=== PATIENT | female | born 1965 | race Caucasian/White ===

== ENCOUNTER 2017-10-29 06:07 | Day surgery (SDC) | payer OTHER ==
[~2017-10-29] VITALS: Ht 157.5 cm; Wt 96.6 kg
[~2017-10-29 06:07] MED LIST: CLONAZEPAM1 MG PO; EQ ALLERGY & S1 EACH PO; GABAPENTIN300 MG PO; GLUCOPHAGE1000 MG PO; LANTUS100 UNITS/ SUB-Q; LIPITOR80 MG PO; NOVOLOG100 UNIT/2 SUB-Q; PAROXETINE HCL20 MG PO; PROAIR HFA8.5 GM INH; SYNTHROID50 MCG PO; VITAMIN D35000 UNI1 PO
[2017-10-29] MEDS ORDERED: CALCIUM500 MG PO (06:27)
[2017-10-29] MEDS ORDERED: GLUCOPHAGE1000 MG PO (06:28)
[2017-10-29] MEDS ORDERED: LISINOPRIL-HCT1 EAC1 PO (06:29)
--- NOTE | 2017-10-29 08:39 | NUR ---
10/29/17 0839 Taina Shukla 0822 PT ARRIVED ON 4L VIA NC. PT REACTIVE. O2 DECREASED, PT OPENED EYES TO TICTILE STIMULI AND ENCOURAGED TO DEEP BREATH. O2 INCREASED. 0828 PT MORE AWAKE AND TALKING. PT REMOVED NC FROM FACE. O2 SAT 95%. 0830 PT BP DECREASED, HOB DOWN AND FLUIDS INCREASED. PT TALKING AND DENIES PAIN, DIZZINESS, AND NAUSEA.
--- NOTE | 2017-10-29 09:58 | OR ---
[facility] [address] [place], [place] [address] Signed DATE OF OPERATION: 10/29/2017 SURGEON: Buddy Durant MD PREOPERATIVE DIAGNOSES: 1. Mother with a history of colonic polyps. 2. Chronic diarrhea. 3. Fecal urgency and soilage. POSTOPERATIVE DIAGNOSIS: Moderate internal hemorrhoids. PROCEDURE: Colonoscopy without biopsy. ESTIMATED BLOOD LOSS: None. INDICATIONS: Bhavana is a 52-year-old patient asked to see me for followup colonoscopy. She has had longstanding diabetes and anxiety. She does take daily clonazepam. Her colonoscopy five years ago in [place] was unremarkable. They told her GI symptoms were probably from the diabetes. She does have trouble with fecal urgency and soilage particular at night. She also mentioned that her mother had colonic polyps removed. I gave Bhavana a booklet in the office on colonoscopy. We looked at that together along with the risks including, but not limited to gas bloating, crampy abdominal pain, bleeding, perforation, requiring surgery, and missed diagnosis. We also discussed the need for IV conscious sedation. She had expressed understanding and wished to proceed. PROCEDURE NOTE: Bhavana was taken into the endoscopy suite and placed in the left lateral decubitus position. She was given 10 mg of Versed and 200 mcg of fentanyl. She was still awake and talking to us. Consequently, we asked the anesthesia provider to come and help us with infusion of propofol. In addition, she needed some airway management as well. After this, a digital rectal exam was performed and this was unremarkable. She has good sphincter control. The adult colonoscope was introduced and advanced all around into the cecum under direct visualization of camera without difficulty. Her prep was good. The scope was then slowly withdrawn. We found no pathology throughout the entire colon or rectum. We did take pictures throughout for photodocumentation. Upon retroflexion of the scope, there was no additional pathology noted above the anal canal except for Electronically Signed By: BUDDY DURANT MD 10/29/17 0958 PATIENT NAME: BHAVANA WOOD OPERATIVE REPORT DATE OF : 69 REPORT #: [id number] PHYSICIAN: BUDDY DURANT MD PCP: NICOLE ORTIZ MD REPORT IS CONFIDENTIAL AND NOT TO BE RELEASED WITHOUT AUTHORIZATION [facility] [address] [place] [id number] Signed the internal hemorrhoids. After this, the gas was suctioned out and the colonoscope removed. Bhavana tolerated the procedure quite well. RECOMMENDATIONS: Bhavana can follow up in 5 years for repeat colonoscopy. If she continues to have issues with fecal urgency and soilage, she might consider evaluation through a colorectal surgeon. MD GIULIANA Castillo/SIMÓNL /[id number] cc: MD Buddy Mahmood MD Lohith Veerappa Reddy, MD Copies: RODRIGUEZ CHI MD, ANDREW L MD REDDY, LOHITH VEERAPPA MD ~ Electronically Signed By: BUDDY DURANT MD 10/29/17 0958 PATIENT NAME: BHAVANA WOOD OPERATIVE REPORT DATE OF : 69 REPORT #: [id number] PHYSICIAN: BUDDY DURANT MD PCP: NICOLE ORTIZ MD REPORT IS CONFIDENTIAL AND NOT TO BE RELEASED WITHOUT AUTHORIZATION
--- NOTE | 2017-10-29 13:05 | NUR ---
PT ALERT, ORIENTED AND SUPPORTED BY HER MOTHER. SHE HAS HAD SCOPES BEFORE, AND SEEMED TO DEAL APPROPRIATELY WITH PREP. PT REQUESTED PRAYER, WILL FOLLOW I AM NEEDED
== END 2017-10-29 09:13 | disposition home or self-care (01) ==
LOC: OPS 06:07 → DS 06:07 → OPS 06:45
PROVIDERS: Colon & Rectal Surgery
PROC: 0DJD8ZZ Inspection of Lower Intestinal Tract, Via Natural or Artificial Opening Endoscopic (ICD-10-PCS; principal; 2017-10-29 06:45)
DX: K64.8 Other hemorrhoids (principal); K52.9 Noninfective gastroenteritis and colitis, unspecified; I10 Essential (primary) hypertension; K21.9 Gastro-esophageal reflux disease without esophagitis; E78.5 Hyperlipidemia, unspecified; E03.9 Hypothyroidism, unspecified; E11.9 Type 2 diabetes mellitus without complications; G25.81 Restless legs syndrome; E11.40 Type 2 diabetes mellitus with diabetic neuropathy, unspecified; F32.9 Major depressive disorder, single episode, unspecified; Z88.2 Allergy status to sulfonamides; Z83.71 Family history of colonic polyps; Z79.899 Other long term (current) drug therapy; Z79.4 Long term (current) use of insulin
CPT/HCPCS: J2250; J2704; J3010; J7120